=== PATIENT | female | born 1995 | race Two or more races ===

== ENCOUNTER 2019-06-03 02:26 | Inpatient (IN) | payer OTHER ==
[~2019-06-03] VITALS: Ht 160 cm; Wt 57.6 kg
[2019-06-03 02:50] VITALS: BP 104/57
--- NOTE | 2019-06-03 02:50 | NUR ---
RECEIVED PATIENT FROM [facility] A DIRECT ADMIT FOR DX PYELONEPHRITIS. AO X 3, ABLE TO MAKE NEEDS KNOWN. NO ACUTE DISTRESS NOTED. DENIES ANY PAIN AT THIS TIME. TELE READING SR WITH HR 71. IV SITE PATENT, INTACT; FLUSHED. SKIN INTACT. SAFETY REMINDERS GIVEN. ON LOW BED WITH BILATERAL UPPER SIDE RAILS UP. CALL SILVA WITHIN EASY REACH. WILL CONTINUE TO MONITOR.
[2019-06-03] MEDS ORDERED: ACETAMINOPHEN 325 MG TABLET PO PRN (03:30)
[2019-06-03] MEDS ORDERED: MAGNESIUM HYDROXIDE 30 ML UDC PO PRN (03:30)
[2019-06-03] MEDS ORDERED: CEFTRIAXONE 1 G in IV D5W 50 ML IV SCH (03:30)
[2019-06-03] MEDS ORDERED: Z GUARD REMEDY 2 OZ OINT TP PRN (03:30)
[2019-06-03] MEDS ORDERED: ONDANSETRON HCL/PF 4 MG/2 ML VIAL IVP PRN (03:30)
[2019-06-03] MEDS ORDERED: MAG HYDROX/AL HYDROX/SIMETH 30 ML UDC PO PRN (03:30)
--- NOTE | 2019-06-03 03:30 | NUR ---
PATIENT RECEIVED ROCEPHIN IV AT [facility] ON 06/02/19 AT 2100. ROCEPHIN NOT GIVEN AT THIS TIME. Addendum: 06/03/19 at 0538 by VARGAS TRACY RN ROCEPHIN RESCHEDULED FOR 06/03/19 AT 2100.
[2019-06-03 04:00] VITALS: BP 104/57
[2019-06-03] MEDS: IV 1/2NS 1000 ML 1,000 ML IV PRN ×2 (05:35→19:16)
--- NOTE | 2019-06-03 06:25 | NUR ---
PATIENT ASLEEP, EASILY AROUSABLE. RESPIRATIONS EVEN. NO SIGNS OF PAIN NOTED. IVF INFUSING ORDERED. NEEDS ATTENDED. SAFETY PRECAUTIONS AND COMFORT MEASURES IN PLACE. WILL GIVE REPORT TO TO DAY SHIFT FOR CONTINUITY OF CARE.
[2019-06-03 07:06] LABS: BASOPHILS % (AUTO) 0.3 % (0.0-2.0); EOSINOPHILS % (AUTO) 0.6 % (0.0-6.0); HEMATOCRIT 35 % (33-45); HEMOGLOBIN 11.9 g/dL (11.5-14.8); LYMPHOCYTES # (AUTO) 1.4 /CMM (0.8-4.8); LYMPHOCYTES % (AUTO) 16.7 % (20.0-44.0); MEAN CORPUSCULAR HGB CONC 34 g/dl (31.0-36.0); MEAN CORPUSCULAR VOLUME 88 fL (82-100); MONOCYTES # (AUTO) 1.4 /CMM (0.1-1.30); MONOCYTES % (AUTO) 16.1 % (2.0-12.0); NEUTROPHILS # (AUTO) 5.7 /CMM (1.8-8.9); NEUTROPHILS % (AUTO) 66.3 % (43.0-81.0); PLATELET COUNT (AUTO) 157 /CMM (150-450); RED BLOOD CELL COUNT(AUTO) 3.97 MIL/uL (4.0-5.2); WHITE BLOOD COUNT (AUTO) 8.6 K/uL (4.3-11.0)
[2019-06-03 07:23] LABS: ALBUMIN 2.9 g/dL (3.4-5.0); BILIRUBIN,TOTAL 0.3 mg/dL (0.2-1.0); CALCIUM, SERUM 8.8 mg/dL (8.5-10.1); CREATININE 0.8 mg/dL (0.6-1.3); POTASSIUM 3.6 mmol/L (3.5-5.1); TOTAL PROTEIN, SERUM 6.7 g/dL (6.4-8.2)
--- NOTE | 2019-06-03 07:29 | NUR ---
FUR REMODELER NOTES PATIENT RESTING IN BED, FAMILY AT BEDSIDE. PATIENT ALERT AND ORIENTED X3, NO RESPIRATORY DISTRESS NOTED, NO C/O PAIN AT THIS TIME. SKIN WARM TO TOUCH, IVF OF 1/2 NS INFUSING AT 75ML/HR ON THE RAC #20G, INTACT AND PATENT, NO REDNESS, NO INFILTRATION NOTED. PATIENT'S NEEDS ATTENDED. BED ON LOWEST LOCKED POSITION, CALL LIGHT WITHIN REACH. WILL CONTINUE TO MONITOR.
[2019-06-03 08:00] VITALS: BP 107/70
[2019-06-03 09:53] LABS: NEUTROPHILS % (MANUAL) 67 (42-76)
[2019-06-03 09:54] LABS: EOSINOPHILS % (MANUAL) 1 % (0-4); LYMPHOCYTES % (MANUAL) 16 % (16-48); MONOCYTES % (MANUAL) 16 % (0-11.0)
[2019-06-03] MEDS: HYDROCODONE/APAP 5/325MG 1 EACH TABLET PO PRN (15:14)
[2019-06-03 15:55] VITALS: BP 103/67
--- NOTE | 2019-06-03 18:12 | NUR ---
M/S RN NOTES PATIENT AWAKE IN BED, FAMILY AT BEDSIDE. PATIENT IN NO RESPIRATORY DISTRESS, PAIN TOLERABLE AT THIS TIME. SKIN WARM TO TOUCH. IVF OF 1/2 NS INFUSING AT 75ML/HR ON THE RAC #20G, INTACT AND PATENT. PATIENT'S NEEDS ATTENDED. BED ON LOWEST LOCKED POSITION, CALL LIGHT WITHIN REACH. WILL ENDORSE TO ONCOMING NURSE.
--- NOTE | 2019-06-03 19:30 | NUR ---
MS RN RECEIVE PT IN BED A/O X 3, STABLE, RESPIRATIONS EVEN AND UNLABORED, SAFETY MEASURES IN PLACE. WILL CONTINUE TO MONITOR
[2019-06-03 20:00] VITALS: BP 123/86
[2019-06-03 20:35] VITALS: BP 123/86
[2019-06-03] MEDS: CEFTRIAXONE 1 G in IV D5W 50 ML IV SCH (20:56)
[2019-06-04 06:26] LABS: BASOPHILS % (AUTO) 0.1 % (0.0-2.0); EOSINOPHILS % (AUTO) 0.5 % (0.0-6.0); HEMATOCRIT 35 % (33-45); HEMOGLOBIN 12.1 g/dL (11.5-14.8); LYMPHOCYTES # (AUTO) 1.1 /CMM (0.8-4.8); LYMPHOCYTES % (AUTO) 15.2 % (20.0-44.0); MEAN CORPUSCULAR HGB CONC 34 g/dl (31.0-36.0); MEAN CORPUSCULAR VOLUME 89 fL (82-100); MONOCYTES # (AUTO) 0.8 /CMM (0.1-1.30); MONOCYTES % (AUTO) 11.6 % (2.0-12.0); NEUTROPHILS # (AUTO) 5.2 /CMM (1.8-8.9); NEUTROPHILS % (AUTO) 72.6 % (43.0-81.0); PLATELET COUNT (AUTO) 176 /CMM (150-450); RED BLOOD CELL COUNT(AUTO) 3.99 MIL/uL (4.0-5.2); WHITE BLOOD COUNT (AUTO) 7.2 K/uL (4.3-11.0)
--- NOTE | 2019-06-04 06:35 | NUR ---
MS RN ASLEEP AND EASILY AWAKEN, RESPIRATIONS EVEN AND UNLABORED. STABLE, SLEPT WELL THROUGHOUT THE NIGHT. KEPT CLEAN AND DRY AND COMFORTABLE. NEEDS ATTENDED AND ANTICIPATED. NURSING CARE RENDERED, NO C/O PAIN SAFETY MEASURES AT ALL TIMES. ENDORSE TO THE NEXT SHIFT.
[2019-06-04 06:47] LABS: CALCIUM, SERUM 8.9 mg/dL (8.5-10.1); CREATININE 0.7 mg/dL (0.6-1.3); MAGNESIUM 1.9 mg/dL (1.8-2.4); PHOSPHORUS 4.1 mg/dL (2.5-4.9); POTASSIUM 3.3 mmol/L (3.5-5.1)
--- NOTE | 2019-06-04 07:10 | NUR ---
MS RN NOTES PATIENT IN BED, ALERT ORIENTED X 4. NO ACUTE DISTRESS NOTED, BREATHING UNLABORED, NO SOB NOTED. IV ACCESS PATENT AND INTACT, NO REDNESS OR SWELLING NOTED. CALL LIGHT WITHIN REACH. SAFETY MEASURES IN PLACE. WILL CONTINUE TO MONITOR ACCORDINGLY.
[2019-06-04] MEDS: POTASSIUM CHLORIDE 20 MEQ TAB.PRT.SR PO SCH (08:43)
[2019-06-04] MEDS: IV 1/2NS 1000 ML 1,000 ML IV PRN (08:43)
[2019-06-04 08:44] VITALS: BP 110/62
--- NOTE | 2019-06-04 15:02 | NUR ---
MS RN NOTES CALLED TO FOLLOWUP WITH [facility], NO ANSWER, LEFT MESSAGE.
[2019-06-04 15:58] VITALS: BP 118/69
--- NOTE | 2019-06-04 19:00 | NUR ---
MS RN NOTES PATIENT IN BED, ALERT ORIENTED X 4. NO ACUTE DISTRESS NOTED, BREATHING UNLABORED, NO SOB NOTED. IV ACCESS PATENT AND INTACT, NO REDNESS OR SWELLING NOTED.DUE MEDICATIONS GIVEN, NO ASE NOTED.NEEDS ATTENDED AND ANTICIPATED. KEPT CLEAN DRY AND COMFORTABLE. CALL LIGHT WITHIN REACH. SAFETY MEASURES IN PLACE. WILL ENDORSE TO NIGHT NURSE FOR CONTINUITY OF CARE.
--- NOTE | 2019-06-04 19:23 | NUR ---
MS RN RECEIVE PT IN AWAKE WATCHING TV IN BED A/O X 3, STABLE, RESPIRATIONS EVEN AND UNLABORED, SAFETY MEASURES IN PLACE. WILL CONTINUE TO MONITOR
[2019-06-04 20:00] VITALS: BP_SYST 116; BP_SYST 117; BP_DIAS 65; BP_DIAS 72
[2019-06-04] MEDS: CEFTRIAXONE 1 G in IV D5W 50 ML IV SCH (20:08)
[2019-06-04] MEDS: HYDROCODONE/APAP 5/325MG 1 EACH TABLET PO PRN (20:24)
[2019-06-05] MEDS: IV 1/2NS 1000 ML 1,000 ML IV PRN ×2 (00:49→14:30)
--- NOTE | 2019-06-05 06:18 | NUR ---
MS RN PT SLEPT WELL THROUGHOUT THE NIGHT. NO S/S OF DISTRESS, NOT IN RESPIRATORY DISTRESS. KEPT CLEAN AND DRY AND COMFORTABLE. NEEDS ATTENDED AND ANTICIPATED. NURSING CARE RENDERED, NO C/O PAIN AT THIS TIME. SAFETY MEASURES AT ALL TIMES. ENDORSE TO THE NEXT SHIFT.
[2019-06-05 06:31] LABS: HEMATOCRIT 34 % (33-45); HEMOGLOBIN 11.5 g/dL (11.5-14.8); MEAN CORPUSCULAR HGB CONC 34 g/dl (31.0-36.0); MEAN CORPUSCULAR VOLUME 89 fL (82-100); RED BLOOD CELL COUNT(AUTO) 3.82 MIL/uL (4.0-5.2)
[2019-06-05 06:36] LABS: CALCIUM, SERUM 8.9 mg/dL (8.5-10.1); CREATININE 0.7 mg/dL (0.6-1.3); POTASSIUM 3.7 mmol/L (3.5-5.1)
--- NOTE | 2019-06-05 08:00 | NUR ---
MS RN OPENING NOTES Received Patient resting and asleep in bed. A/O x 4. VS stable with no acute distress. Breathing even and unlabored on room air with no respiratory distress. No signs and symptoms of pain. 22g PIV on LAC clean, dry, intact and flushing well with 1/2 NS running at 75ml/hr. Safety precautions in place. Bed locked and set to lowest position with side rails x 2 up. Mom at bedside. Will continue to monitor.
[2019-06-05 08:45] VITALS: BP 108/62
[2019-06-05 09:59] LABS: NEUTROPHILS % (AUTO) 60.2 % (43.0-81.0); WHITE BLOOD COUNT (AUTO) 6.4 K/uL (4.3-11.0)
[2019-06-05 10:00] LABS: PLATELET COUNT (AUTO) 204 /CMM (150-450)
[2019-06-05 10:01] LABS: EOSINOPHILS % (AUTO) 1.9 % (0.0-6.0); LYMPHOCYTES % (AUTO) 25.4 % (20.0-44.0); MONOCYTES % (AUTO) 12.1 % (2.0-12.0)
[2019-06-05 10:02] LABS: BASOPHILS % (AUTO) 0.4 % (0.0-2.0)
[2019-06-05 10:04] LABS: LYMPHOCYTES # (AUTO) 1.6 /CMM (0.8-4.8); NEUTROPHILS # (AUTO) 3.8 /CMM (1.8-8.9)
[2019-06-05 10:05] LABS: MONOCYTES # (AUTO) 0.8 /CMM (0.1-1.30)
[2019-06-05] MEDS: POTASSIUM CHLORIDE 20 MEQ TAB.PRT.SR PO SCH (10:22)
--- NOTE | 2019-06-05 12:55 | NUR ---
MS RN NOTES Unable to obtain URINE CULTURE RESULTS from [facility] at this time. Per [employer] Guest Coordinator from phone number , Medical Records closed on weekends. Called and left voice message from Medical Records from phone number to fax URINE CULTURE RESULTS ASAP. Torres DNP notified. Will continue to monitor.
[2019-06-05 16:25] VITALS: BP 138/72
--- NOTE | 2019-06-05 19:09 | NUR ---
MS RN CLOSING NOTES Patient awake and resting in bed. A/O x 4. VS stable with no acute distress. Breathing even and unlabored on room air with no respiratory distress. Denies pain. 22g PIV on LAC clean, dry, intact and flushing well with 1/2 NS running at 75ml/hr. Safety precautions in place. Bed locked and set to lowest position with side rails x 2 up. Boyfriend at bedside. All needs rendered at this time. Will endorse plan of care to oncoming shift.
--- NOTE | 2019-06-05 19:20 | NUR ---
RN OPEN NOTES RECEIVED PATIENT AWAKE IN BED. A/OX4. NO SIGNS OF DISTRESS OR DISCOMFORT. BREATHING EVEN AND UNLABORED. IV ACCESS IN LAC WITH 1/2 NS INFUSING, PATENT AND INTACT, NO SIGNS OF REDNESS OR INFILTRATION. BED IN LOW LOCKED POSITION WITH SIDE RAILS X2. CALL LIGHT WITHIN REACH. WILL CONTINUE TO MONITOR.
[2019-06-05 20:20] VITALS: BP 102/67
[2019-06-05] MEDS: CEFTRIAXONE 1 G in IV D5W 50 ML IV SCH (21:07)
[2019-06-06] MEDS: IV 1/2NS 1000 ML 1,000 ML IV PRN ×2 (04:46→19:55)
[2019-06-06 06:33] LABS: BASOPHILS % (AUTO) 0.6 % (0.0-2.0); EOSINOPHILS % (AUTO) 2.6 % (0.0-6.0); HEMATOCRIT 38 % (33-45); HEMOGLOBIN 12.9 g/dL (11.5-14.8); LYMPHOCYTES # (AUTO) 1.8 /CMM (0.8-4.8); LYMPHOCYTES % (AUTO) 34.9 % (20.0-44.0); MEAN CORPUSCULAR HGB CONC 34 g/dl (31.0-36.0); MEAN CORPUSCULAR VOLUME 89 fL (82-100); MONOCYTES # (AUTO) 0.6 /CMM (0.1-1.30); MONOCYTES % (AUTO) 11.4 % (2.0-12.0); NEUTROPHILS # (AUTO) 2.5 /CMM (1.8-8.9); NEUTROPHILS % (AUTO) 50.5 % (43.0-81.0); PLATELET COUNT (AUTO) 274 /CMM (150-450)
--- NOTE | 2019-06-06 06:46 | NUR ---
RN CLOSING NOTES PATIENT RESTING IN BED WITH FAMILY AT BEDSIDE. A/OX4. NO SIGNS OF DISTRESS OR DISCOMFORT. BREATHING EVEN AND UNLABORED. IV ACCESS IN LAC WITH 1/2 NS INFUSING, PATENT AND INTACT, NO SIGNS OF REDNESS OR INFILTRATION. ALL NEEDS MET. NO SIGNIFICANT CHANGES THROUGH THE NIGHT. BED IN LOW LOCKED POSITION WITH SIDE RAILS X2. CALL LIGHT WITHIN REACH. WILL ENDORSE TO AM SHIFT FOR ROSALINDA.
[2019-06-06 06:49] LABS: CALCIUM, SERUM 9.5 mg/dL (8.5-10.1); CREATININE 0.7 mg/dL (0.6-1.3); MAGNESIUM 2.2 mg/dL (1.8-2.4); PHOSPHORUS 4.3 mg/dL (2.5-4.9); POTASSIUM 4.2 mmol/L (3.5-5.1)
[2019-06-06 08:00] VITALS: BP 106/59
--- NOTE | 2019-06-06 08:00 | NUR ---
MS RN OPENING NOTES Received Patient resting in bed. A/O x 4. VS stable with no acute distress. Breathing even and unlabored on room air with no respiratory distress. Denies pain. 22g PIV on LAC clean, dry, intact and flushing well with 1/2 NS running at 75ml/hr. Safety precautions in place. Bed locked and set to lowest position with side rails x 2 up. Mom at bedside. Will continue to monitor.
[2019-06-06] MEDS: POTASSIUM CHLORIDE 20 MEQ TAB.PRT.SR PO SCH (09:53)
--- NOTE | 2019-06-06 14:37 | NUR ---
MS RN NOTES Obtained copy of URINE CULTURE RESULTS from [facility] via fax. Relayed results to Brian RENDON at this time. NNO. Will continue to monitor.
[2019-06-06 16:00] VITALS: BP 110/66
--- NOTE | 2019-06-06 17:20 | NUR ---
MS RN NOTES Collected urine sample and placed in fridge at this time. Will continue to monitor.
[2019-06-06 18:08] LABS: APPEARANCE,URINE CLEAR (CLEAR); BILIRUBIN,URINE NEGATIVE (NEGATIVE); BLOOD, URINE NEGATIVE Ery/uL (NEGATIVE); COLOR,URINE YELLOW (YELLOW); KETONES,URINE NEGATIVE (NEGATIVE); LEUKOCYTE ESTERASE ,URINE NEGATIVE (NEGATIVE); NITRITE, URINE NEGATIVE (NEGATIVE); PROTEIN,URINE NEGATIVE (NEGATIVE); UGLUCOSE NEGATIVE (NEGATIVE); UROBILINOGEN,URINE 0.2 EU/dL (0.2)
--- NOTE | 2019-06-06 19:02 | NUR ---
MS RN CLOSING NOTES Patient resting in bed. A/O x 4. VS stable with no acute distress. Breathing even and unlabored on room air with no respiratory distress. Denies pain. 22g PIV on LAC clean, dry, intact and flushing well with 1/2 NS running at 75ml/hr. Safety precautions in place. Bed locked and set to lowest position with side rails x 2 up. All needs rendered at this time. Will endorse plan of care to oncoming shift.
--- NOTE | 2019-06-06 20:02 | NUR ---
MS RN NOTES RECEIVED PATIENT AWAKE IN BED WITH NO DISTRESS NOTED. CALL LIGHT WITHIN REACH. NO C/O PAIN OR DISCOMFORT. PERIPHERAL LINE INTACT AND PATENT. ENCOURAGED USE OF CALL LIGHT FOR ASSISTANCE AND VERBALIZED GOOD UNDERSTANDING. BED IN LOW LOCK SETTING. ROOM FREE OF CLUTTER AND BELONGINGS KEPT NEAR BEDSIDE. WILL CONTINUE TO MONITOR.
[2019-06-06 20:39] VITALS: BP 107/59
[2019-06-06] MEDS: CEFTRIAXONE 1 G in IV D5W 50 ML IV SCH (21:29)
--- NOTE | 2019-06-07 06:55 | NUR ---
MS RN NOTES PATIENT ASLEEP IN BED WITH NO DISTRESS NOTED. CALL LIGHT WITHIN REACH. ALL DUE MEDS GIVEN ORDERED WITH NO ASE NOTED. NO C/O PAIN OR DISCOMFORT. PERIPHERAL LINE INTACT AND PATENT. PATIENT REFUSED AM LABS DESPITE EXPLANATION OF RISKS AND BENEFITS. BED IN LOW LOCK SETTING. WILL ENDORSE TO ONCOMING SHIFT.
--- NOTE | 2019-06-07 07:29 | NUR ---
MS RN OPENING NOTES: RECEIVED PATIENT IN BED RESTING COMFORTABLY. A/O X 4. ON ROOM AIR AND TOLERATING WELL. IVF ON LEFT AC #20 WITH 1/2NS @75 MLS/HR. PATENT AND INTACT. DENIES ANY PAIN OR DISCOMFORT AT THIS TIME. NOT IN ANY DISTRESS. SAFETY MEASURES IN PLACE, BED KEPT IN LOW, LOCKED POSITION, AND SIDE RAILS X 2UP. CALL LIGHT WITHIN EASY REACH. WILL CONTINUE TO MONITOR.
[2019-06-07 08:00] VITALS: BP 104/59
[2019-06-07] MEDS: POTASSIUM CHLORIDE 20 MEQ TAB.PRT.SR PO SCH (08:44)
[2019-06-07] MEDS ORDERED: SULF1TAB48 PO (11:04)
--- NOTE | 2019-06-07 12:19 | NUR ---
MS MANAGER FINANCE NOTES PATIENT DISCHARGED IN STABLE CONDITION. A/O X 4. ABLE TO MAKE NEEDS KNOWN. V/S TAKEN, STABLE AND RECORDED. PATIENT'S IV ACCESS REMOVED AND APPLIED PRESSURE DRESSING. SKIN IS INTACT. NAME ARM BAND REMOVED. ALL BELONGINGS CHECKED AND SIGNED. HEALTH TEACHINGS/ DISCHARGED INSTRUCTIONS GIVEN AND VERBALIZED UNDERSTANDING. PATIENT LEFT UNIT AMBULATORY AT 12:10 WITH MOTHER AND AUNT IN NO ACUTE SIGNS OF DISTRESS. PATIENT ASSISTED TO THE LOBBY. CHARGE NURSE AWARE OF DISCHARGED.
== END 2019-06-07 12:15 | disposition home or self-care (01) | DRG 463 ==
LOC: TELE 02:47 → MED 08:30
PROVIDERS: ADMIT Family Medicine; ATTEND Nurse Practitioner Acute Care
DX: N10 Acute pyelonephritis (principal); E44.1 Mild protein-calorie malnutrition; E87.6 Hypokalemia; Z68.22 Body mass index [BMI] 22.0-22.9, adult
CPT/HCPCS: 36415; 80048-TC; 80053-TC; 81000-TC; 83735-TC; 84100-TC; 84703-TC; 85025-TC; 87081-TC; 87086-TC; G0378; J0696; J3490; J7060